=== PATIENT | male | born 1965 | race Caucasian/White ===

== ENCOUNTER 2018-01-30 14:53 | Inpatient (IN) | payer SELFPAY ==
[2018-01-30] MEDS ORDERED: ASPIRIN 81 MG TABLET, CHEWABLE PO ONE (15:54)
--- NOTE | 2018-01-30 16:13 | ER Document Report ---
ED Medical Screen (RME) - General Chief Complaint: Chest Pain Stated Complaint: LEG/CHEST PAIN Time Seen by Provider: 01/30/18 15:42 Mode of Arrival: Wheelchair Information source: Patient Notes: 52 yr old male presents with complaints of chest pressure sensation , peripheral edema and left foot 1st digit toe concern I have greeted and performed a rapid initial assessment of this patient. A comprehensive ED assessment and evaluation of the patient, analysis of test results and completion of the medical decision making process will be conducted by additional ED providers. PHYSICAL EXAMINATION: GENERAL: Well-appearing, well-nourished and in mild acute distress. HEAD: Atraumatic, normocephalic. EYES: Pupils equal round extraocular movements intact, conjunctiva are normal. ENT: Nares patent NECK: Normal range of motion LUNGS: No respiratory distress Musculoskeletal: Normal range of motion NEUROLOGICAL: Normal speech, normal gait. PSYCH: Normal mood, normal affect. SKIN: left foot 1st digit skin excoriation TRAVEL OUTSIDE OF THE [place] IN LAST 30 DAYS: No - Related Data Allergies/Adverse Reactions: Honey Bee Venom Protein [From Honey Bee Venom Protein] Allergy (Verified 12:52) Past Medical History - Social History Chew tobacco use (# tins/day): No Frequency of alcohol use: Occasional Family history: CAD - Past Medical History Cardiac Medical History: Reports: Hx Atrial Fibrillation Pulmonary Medical History: Denies: Hx Tuberculosis Renal/ Medical History: Denies: Hx Peritoneal Dialysis Musculoskeltal Medical History: Reports Hx Arthritis Psychiatric Medical History: Denies: Hx Depression Past Surgical History: Reports: Hx Herniorrhaphy. Denies: Hx Pacemaker - Immunizations Hx Diphtheria, Pertussis, Tetanus Vaccination: Yes Physical Exam - Vital signs Vitals: Temp Pulse Resp BP Pulse Ox 97.9 F 94 18 159/89 H 100 01/30/18 15:07 01/30/18 15:07 01/30/18 15:07 01/30/18 15:07 01/30/18 15:07 Course - Vital Signs Vital signs: Temp Pulse Resp BP Pulse Ox 97.9 F 94 18 159/89 H 100 01/30/18 15:07 01/30/18 15:07 01/30/18 15:07 01/30/18 15:07 01/30/18 15:07
--- NOTE | 2018-01-30 17:05 | ER Document Report ---
ED General - General Chief Complaint: Chest Pain Stated Complaint: LEG/CHEST PAIN Time Seen by Provider: 01/30/18 15:42 Mode of Arrival: Wheelchair Information source: Patient Notes: Patient is a 52-year-old male with a past medical history of intermittent atrial fibrillation currently on no medications or presents today stating that he has had some intermittent chest discomfort, again an episode this morning. He states it is substernal, nonexertional, nonradiating. He denies any nausea, vomiting, or fevers. States mild shortness of breath. Family is also concerned for around 2 weeks the patient has had an ulcer to the base of his left great toe. Patient denies any trauma. He states pain only to his toe. He denies a history of gout. Patient states he has had a history of " borderline diabetes" but is currently on no medications. He currently has no primary care physician. Patient states he does feel "weak all over". He denies any focal weakness or numbness. He denies any headache or neck pain. TRAVEL OUTSIDE OF THE [place] IN LAST 30 DAYS: No - HPI Onset: Other - See above Onset/Duration: Gradual Quality of pain: Achy Severity: Mild Pain Level: Denies Associated symptoms: Other - See above Exacerbated by: Denies Relieved by: Denies Similar symptoms previously: Yes Recently seen / treated by doctor: No - Related Data Allergies/Adverse Reactions: Honey Bee Venom Protein [From Honey Bee Venom Protein] Allergy (Verified 12:52) Past Medical History - General Information source: Patient - Social History Smoking Status: Never Smoker Cigarette use (# per day): No Chew tobacco use (# tins/day): No Smoking Education Provided: No Frequency of alcohol use: Occasional Family History: Reviewed & Not Pertinent Patient has suicidal ideation: No Patient has homicidal ideation: No - Past Medical History Cardiac Medical History: Reports: Hx Atrial Fibrillation Pulmonary Medical History: Denies: Hx Tuberculosis Renal/ Medical History: Denies: Hx Peritoneal Dialysis Musculoskeltal Medical History: Reports Hx Arthritis Psychiatric Medical History: Denies: Hx Depression Past Surgical History: Reports: Hx Herniorrhaphy. Denies: Hx Pacemaker - Immunizations Hx Diphtheria, Pertussis, Tetanus Vaccination: Yes Review of Systems - Review of Systems Constitutional: denies: Fever EENT: denies: Eye discharge, Nose discharge Cardiovascular: denies: Palpitations Respiratory: denies: Hurts to breathe, Hemoptysis Gastrointestinal: denies: Vomiting Genitourinary: denies: Dysuria Neurological/Psychological: Other - no slurred speech -: Yes All other systems reviewed and negative Physical Exam - Vital signs Vitals: Temp Pulse Resp BP Pulse Ox 97.9 F 94 18 159/89 H 100 01/30/18 15:07 01/30/18 15:07 01/30/18 15:07 01/30/18 15:07 01/30/18 15:07 Notes: Reviewed vital signs and nursing note as charted by RN. CONSTITUTIONAL: Alert and oriented and responds appropriately to questions. Well -appearing; well-nourished HEAD: Normocephalic; atraumatic EYES: PERRL; no nystagmus noted ENT: Normal nose; no rhinorrhea; moist mucous membranes; pharynx without lesions noted NECK: Supple without meningismus; non-tender; no cervical lymphadenopathy, no masses CARD: Regular rate and rhythm; no murmurs, no clicks, no rubs, no gallops; symmetric distal pulses RESP: Normal chest excursion without splinting or tachypnea; breath sounds clear and equal bilaterally; no wheezes, no rhonchi, no rales ABD/GI: Normal bowel sounds; non-distended; soft, non-tender BACK: The back appears normal and is non-tender to palpation EXT: Normal ROM in all joints; patient has a small circular ulcer around the size of a quarter to the base of his left great toe. Patient also has some swelling without tenderness to the left foot. Patient has strong pulses to bilateral feet. Intact sensation and proprioception SKIN: See above NEURO: Moves all extremities equally; Motor and sensory function intact PSYCH: The patient's mood and manner are appropriate. Grooming and personal hygiene are appropriate. Course - Re-evaluation Re-evalutation: 01/30/18 17:04 Given the history and physical examination we will order cardiac evaluation including an EKG and a cardiac panel as well as an x-ray of the left foot. I do believe pulmonary embolism and aortic dissection to be extremely unlikely. EKG shows a heart rate of 90, normal sinus rhythm, minimally prolonged QT interval, no obvious ST elevation or depression. Previous EKG in 2013 actually shows inverted T waves in leads V2 through V4 with an ST depression in lead V3 01/30/18 18:22 Initial troponin as recorded. X-ray of the chest and of the foot as recorded. I have provided a clindamycin dose and will admit the patient to the hospitalist service. - Vital Signs Vital signs: Temp Pulse Resp BP Pulse Ox 97.9 F 94 22 H 143/80 H 100 01/30/18 15:07 01/30/18 15:07 01/30/18 17:25 01/30/18 17:25 01/30/18 17:25 - Laboratory Result Diagrams: 01/30/18 17:30 01/30/18 17:30 Laboratory results interpreted by me: 01/30/18 01/30/18 17:30 17:30 RBC 4.31 L RDW 15.3 H Seg Neutrophils % 81.1 H Lymphocytes % 9.7 L BUN 3 L Discharge - Discharge Clinical Impression: Wound of left foot Chest pain Qualifiers: Chest pain type: unspecified Qualified Code(s): R07.9 - Chest pain, unspecified Condition: Fair Disposition: ADMITTED OBSERVATION Admitting Provider: Hospitalist Unit Admitted: Telemetry
[2018-01-30 17:41] LABS: ABSOLUTE LYMPHOCYTES (AUTO) 0.5 10^3/uL (0.5-4.7); ABSOLUTE MONOCYTES (AUTO) 0.3 10^3/uL (0.1-1.4); ABSOLUTE NEUT (AUTO) 3.8 10^3/uL (1.7-8.2); BASOPHILS % (AUTO) 1.1 % (0-2); EOSINOPHILS % (AUTO) 0.7 % (0-6); HEMOGLOBIN 14.3 g/dL (13.5-17.0); LYMPHOCYTES % (AUTO) 9.7 % (13-45); MEAN CORPUSCULAR HEMOGLOBIN 33.1 pg (27.0-33.4); MEAN CORPUSCULAR HGB CONC 34.7 g/dL (32.0-36.0); MEAN CORPUSCULAR VOLUME 95 fl (80-97); MONOCYTES % (AUTO) 7.4 % (3-13); PLATELET COUNT 186 10^3/uL (150-450); RED BLOOD COUNT 4.31 10^6/uL (4.35-5.55); RED CELL DISTRIBUTION WIDTH 15.3 % (11.5-14.0); SEGMENTED NEUTROPHILS % (AUTO) 81.1 % (42-78); TOTAL CELLS COUNTED % (AUTO) 100 %; WHITE BLOOD COUNT 4.6 10^3/uL (4.0-10.5)
--- NOTE | 2018-01-30 18:02 | RADIOLOGY REPORT (SQ) ---
EXAM DESCRIPTION: FOOT LEFT COMPLETE COMPLETED DATE/TIME: 01/30/2018 5:23 pm REASON FOR STUDY: 14; ulce to the base of the left great toe with so COMPARISON: None. NUMBER OF VIEWS: Three views left foot LIMITATIONS: None. FINDINGS: There is no acute or significant bone, joint or soft tissue abnormality. OTHER: No other significant finding. IMPRESSION: NORMAL STUDY. TECHNICAL DOCUMENTATION: JOB ID: [id number] Reading location - IP/workstation name: [email or web address]
--- NOTE | 2018-01-30 18:03 | RADIOLOGY REPORT (SQ) ---
EXAM DESCRIPTION: CHEST 2 VIEWS COMPLETED DATE/TIME: 01/30/2018 5:23 pm REASON FOR STUDY: peripheral edema COMPARISON: 2013 TECHNIQUE: Frontal and lateral radiographic views of the chest acquired. NUMBER OF VIEWS: Two view. LIMITATIONS: None. FINDINGS: LUNGS AND PLEURA: No opacities, masses or pneumothorax. No pleural effusion. MEDIASTINUM AND HILAR STRUCTURES: No masses or contour abnormalities. HEART AND VASCULAR STRUCTURES: Heart normal size. No evidence for failure. BONES: No acute findings. HARDWARE: None in the chest. OTHER: No other significant finding. IMPRESSION: NO SIGNIFICANT RADIOGRAPHIC FINDING IN THE CHEST. TECHNICAL DOCUMENTATION: JOB ID: [id number] [employer]- All Rights Reserved Reading location - IP/workstation name: [email or web address]
[2018-01-30 18:05] LABS: ALANINE AMINOTRANSFERASE 26 U/L (21-72); ALBUMIN 3.7 g/dL (3.5-5.0); ALKALINE PHOSPHATASE 113 U/L (38-126); ANION GAP 14 (5-19); ASPARTATE AMINO TRANSFERASE 40 U/L (17-59); BILIRUBIN,DIRECT 0.4 mg/dL (0.0-0.4); BLOOD UREA NITROGEN 3 mg/dL (7-20); CALCIUM 8.8 mg/dL (8.4-10.2); CARBON DIOXIDE 25 mmol/L (22-30); CHLORIDE 102 mmol/L (98-107); CREATINE KINASE 59 U/L (55-170); GLUCOSE 105 mg/dL (75-110); POTASSIUM 4.3 mmol/L (3.6-5.0); SODIUM 140.6 mmol/L (137-145); TOTAL PROTEIN 7.7 g/dL (6.3-8.2)
[2018-01-30 18:15] LABS: CREATINE KINASE MB 0.69 ng/mL (<4.55); NT PRO BNP 447 pg/mL (5-900)
[2018-01-30 18:16] LABS: TROPONIN I < 0.012 ng/mL
[2018-01-30] MEDS ORDERED: CLINDAMYCIN 600 MG/D5W RTU 600 MG/50 ML RTUPB IV ONE (18:29)
[2018-01-30] MEDS ORDERED: DEXTROSE 40% GEL 15 GM TUBE PO PRN ×2 (19:15)
[2018-01-30] MEDS ORDERED: DEXTROSE 50%-WATER 25 GM/50 ML DISP.SYRIN IV PRN ×2 (19:15)
[2018-01-30] MEDS ORDERED: GLUCAGON,HUMAN RECOMB 1 MG INJ SUBCUT PRN (19:15)
[2018-01-30] MEDS: KETOROLAC TROMETHAMINE INJ/PF 30 MG/1 ML SDV IV PRN (20:40)
[2018-01-30] MEDS: HEPARIN SOD (PORCINE) 5,000 UNIT/ML 1 ML SYRINGE SUBCUT SCH (20:40)
[2018-01-30] MEDS: ATORVASTATIN CALCIUM 80 MG TABLET PO SCH (20:40)
--- NOTE | 2018-01-30 21:16 | EKG REPORT ---
SEVERITY:- ABNORMAL ECG - SINUS RHYTHM PROLONGED QT INTERVAL : Confirmed by: Christiano Sena 30-Jan-2018 21:16:04
[2018-01-30] MEDS: CLINDAMYCIN HCL 150 MG CAPSULE PO SCH (23:22)
[2018-01-31 00:26] LABS: CREATINE KINASE MB 0.47 ng/mL (<4.55)
[2018-01-31 00:47] LABS: TROPONIN I < 0.012 ng/mL
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
[2018-01-31] MEDS: HEPARIN SOD (PORCINE) 5,000 UNIT/ML 1 ML SYRINGE SUBCUT SCH ×3 (06:03→21:38)
[2018-01-31] MEDS: CLINDAMYCIN HCL 150 MG CAPSULE PO SCH ×2 (06:03→16:16)
[2018-01-31 06:48] LABS: CHOLESTEROL 160.85 mg/dL (0-200); CREATINE KINASE 42 U/L (55-170); TRIGLYCERIDES 58 mg/dL (<150)
[2018-01-31 07:00] LABS: DIRECT LDL 54 mg/dL (<100)
[2018-01-31 07:01] LABS: CREATINE KINASE MB 0.53 ng/mL (<4.55)
[2018-01-31 07:03] LABS: TROPONIN I < 0.012 ng/mL
[2018-01-31] MEDS: CYANOCOBALAMIN (VITAMIN B-12) INJ 1000 MCG/1 ML VIAL IM SCH (10:32)
[2018-01-31] MEDS: DOCUSATE SODIUM 100 MG CAPSULE PO SCH ×2 (10:35→17:55)
[2018-01-31] MEDS ORDERED: REGADENOSON INJ 0.4 MG/5 ML DISP.SYRIN IV ONE (11:30)
[2018-01-31 12:19] LABS: CREATINE KINASE MB 0.56 ng/mL (<4.55)
[2018-01-31 12:23] LABS: TROPONIN I < 0.012 ng/mL
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
--- NOTE | 2018-01-31 17:40 | Progress Note ---
Provider Note Provider Note: DEREK SAVAGE is a 52 year old male with a past medical history of paroxysmal atrial fibrillation and recurrent syncopal episodes without trauma. Patient initially presented with a chief complaint of chest pain. An incidental finding was bilateral great toe ulcers, left significantly worse than right. Erythema and swelling to left foot and ankle with red streaking up LLE 1. CHEST PAIN: EKG shows NSR. Troponin < 0.012. No longer trending. Patient does not complain of chest pain. 2. L TOE ULCER: Initially started on clindamycin by press maintainer, upgraded to vancomycin and Zosyn given severity of presenting symptoms. Surgery consulted, Dr. Botello concerned about condition of left great toe and foot. No plan for MRI at this time. Will follow closely. If no improvement, will require surgical intervention.
[2018-01-31] MEDS ORDERED: VANCOMYCIN HCL 0 MG in DEXTROSE 5%-WATER 250 ML IV NR (17:45)
[2018-01-31] MEDS: PIPERACILLIN SODIUM/TAZOBACTAM 3.375 GM in NORMAL SALINE 100 ML IV SCH (20:44)
[2018-01-31] MEDS: VANCOMYCIN HCL 1,500 MG in DEXTROSE 5%-WATER 250 ML IV SCH (21:38)
[2018-01-31] MEDS: ATORVASTATIN CALCIUM 80 MG TABLET PO SCH (21:38)
[2018-02-01] MEDS: PIPERACILLIN SODIUM/TAZOBACTAM 3.375 GM in NORMAL SALINE 100 ML IV SCH ×4 (02:35→20:19)
[2018-02-01 05:12] LABS: HEMATOCRIT 39.7 % (37.9-51.0); HEMOGLOBIN 13.7 g/dL (13.5-17.0); MEAN CORPUSCULAR HEMOGLOBIN 32.7 pg (27.0-33.4); MEAN CORPUSCULAR HGB CONC 34.4 g/dL (32.0-36.0); MEAN CORPUSCULAR VOLUME 95 fl (80-97); PLATELET COUNT 137 10^3/uL (150-450); RED BLOOD COUNT 4.18 10^6/uL (4.35-5.55); RED CELL DISTRIBUTION WIDTH 15.4 % (11.5-14.0); WHITE BLOOD COUNT 4.3 10^3/uL (4.0-10.5)
[2018-02-01 05:38] LABS: ALANINE AMINOTRANSFERASE 21 U/L (21-72); ALBUMIN 2.9 g/dL (3.5-5.0); ALKALINE PHOSPHATASE 80 U/L (38-126); ANION GAP 9 (5-19); ASPARTATE AMINO TRANSFERASE 36 U/L (17-59); BILIRUBIN,DIRECT 0.5 mg/dL (0.0-0.4); BILIRUBIN,TOTAL 1.7 mg/dL (0.2-1.3); BLOOD UREA NITROGEN 5 mg/dL (7-20); CALCIUM 8.3 mg/dL (8.4-10.2); CARBON DIOXIDE 26 mmol/L (22-30); CHLORIDE 102 mmol/L (98-107); GLUCOSE 102 mg/dL (75-110); POTASSIUM 3.8 mmol/L (3.6-5.0); TOTAL PROTEIN 6.4 g/dL (6.3-8.2)
[2018-02-01] MEDS: VANCOMYCIN HCL 1,500 MG in DEXTROSE 5%-WATER 250 ML IV SCH ×3 (05:49→21:59)
[2018-02-01] MEDS: HEPARIN SOD (PORCINE) 5,000 UNIT/ML 1 ML SYRINGE SUBCUT SCH ×3 (05:49→21:58)
[2018-02-01] MEDS: DOCUSATE SODIUM 100 MG CAPSULE PO SCH ×2 (09:02→17:32)
[2018-02-01] MEDS: CYANOCOBALAMIN (VITAMIN B-12) INJ 1000 MCG/1 ML VIAL IM SCH (09:10)
--- NOTE | 2018-02-01 15:31 | PDOC PROGRESS REPORT ---
Subjective Progress Note for:: 02/01/18 Subjective:: Less tingling sensation to both feet. Good sensory function to both feet. Reason For Visit: CHEST PAIN Physical Exam Vital Signs: Temp Pulse Resp BP Pulse Ox 97.6 F 62 18 128/74 H 100 02/01/18 11:56 02/01/18 11:56 02/01/18 11:56 02/01/18 11:56 02/01/18 13:35 Intake & Output 01/31/18 02/01/18 02/02/18 06:59 06:59 06:59 Intake Total 751 Balance 751 Weight 102.9 kg 98.3 kg Exam: Swelling left foot much improved according to the patient. Ulcer on big toe plantar side looks clean and roughly measures 3 cm x 2.5 cm with full thickness skin ulceration. He claims he does not have ggod control of left foot that at times it appears to scrape his left big toe.Claims has "neuropathy" of both feet. Has palpable ankle pulses Results Laboratory Results: 02/01/18 04:43 02/01/18 04:43 02/01/18 02/01/18 04:43 04:43 WBC 4.3 RBC 4.18 L Hgb 13.7 Hct 39.7 MCV 95 MCH 32.7 MCHC 34.4 RDW 15.4 H Plt Count 137 L Sodium 137.0 Potassium 3.8 Chloride 102 Carbon Dioxide 26 Anion Gap 9 BUN 5 L Creatinine 0.89 Est GFR ( Amer) > 60 Est GFR (Non-Af Amer) > 60 Glucose 102 Calcium 8.3 L Total Bilirubin 1.7 H AST 36 ALT 21 Alkaline Phosphatase 80 Total Protein 6.4 Albumin 2.9 L 01/30/18 01/31/18 01/31/18 23:45 05:44 05:44 Creatine Kinase 42 L CK-MB (CK-2) 0.47 0.53 Troponin I < 0.012 < 0.012 01/31/18 11:40 Creatine Kinase CK-MB (CK-2) 0.56 Troponin I < 0.012 Impressions: Chest X-Ray 01/30/18 15:54 IMPRESSION: NO SIGNIFICANT RADIOGRAPHIC FINDING IN THE CHEST. Foot X-Ray 01/30/18 16:59 IMPRESSION: NORMAL STUDY. Assessment & Plan - Time Time Spent with patient: 15-24 minutes - Plan Summary Plan Summary: Continue antibiotics and local wound care to left big toe ulcer site as outlined by Dr Botello
--- NOTE | 2018-02-01 17:20 | PDOC PROGRESS REPORT ---
Subjective Progress Note for:: 02/01/18 Subjective:: DEREK SAVAGE is a 52 year old male with a past medical history of paroxysmal atrial fibrillation and recurrent syncopal episodes without trauma. Patient initially presented with a chief complaint of chest pain. An incidental finding was bilateral great toe ulcers, left significantly worse than right. Erythema and swelling to left foot and ankle with red streaking up LLE. The patient was seen this morning on rounds. Today, the erythema and edema of the LLE has significantly improved. The patient states he is no longer experiencing pain to his L foot. Ulcer to plantar surface of the L great toe is pink, moist, with minimal drainage. Plan to continue IV antibiotics. Reason For Visit: CHEST PAIN Physical Exam Vital Signs: Temp Pulse Resp BP Pulse Ox 97.9 F 65 18 141/81 H 97 02/01/18 15:42 02/01/18 15:42 02/01/18 15:42 02/01/18 15:42 02/01/18 15:42 Intake & Output 01/31/18 02/01/18 02/02/18 06:59 06:59 06:59 Intake Total 751 Balance 751 Weight 102.9 kg 98.3 kg General appearance: PRESENT: no acute distress, well-developed, well-nourished Head exam: PRESENT: atraumatic, normocephalic Eye exam: PRESENT: conjunctiva pink, EOMI, PERRLA. ABSENT: scleral icterus Ear exam: PRESENT: normal external ear exam Mouth exam: PRESENT: moist, tongue midline Neck exam: ABSENT: carotid bruit, JVD, lymphadenopathy, thyromegaly Respiratory exam: PRESENT: clear to auscultation yobany. ABSENT: rales, rhonchi, wheezes Cardiovascular exam: PRESENT: RRR. ABSENT: diastolic murmur, rubs, systolic murmur Pulses: PRESENT: normal dorsalis pedis pul Vascular exam: PRESENT: normal capillary refill GI/Abdominal exam: PRESENT: normal bowel sounds, soft. ABSENT: distended, guarding, mass, organolmegaly, rebound, tenderness Rectal exam: PRESENT: deferred Extremities exam: PRESENT: full ROM. ABSENT: calf tenderness, clubbing, pedal edema Neurological exam: PRESENT: alert, awake, oriented to person, oriented to place , oriented to time, oriented to situation Psychiatric exam: PRESENT: appropriate affect, normal mood Skin exam: PRESENT: dry, intact, warm, other - L GREAT TOE ULCER ON PLANTAR SURFACE. ABSENT: cyanosis, rash Results Laboratory Results: 02/01/18 04:43 02/01/18 04:43 02/01/18 02/01/18 04:43 04:43 WBC 4.3 RBC 4.18 L Hgb 13.7 Hct 39.7 MCV 95 MCH 32.7 MCHC 34.4 RDW 15.4 H Plt Count 137 L Sodium 137.0 Potassium 3.8 Chloride 102 Carbon Dioxide 26 Anion Gap 9 BUN 5 L Creatinine 0.89 Est GFR ( Amer) > 60 Est GFR (Non-Af Amer) > 60 Glucose 102 Calcium 8.3 L Total Bilirubin 1.7 H AST 36 ALT 21 Alkaline Phosphatase 80 Total Protein 6.4 Albumin 2.9 L 01/30/18 01/31/18 01/31/18 23:45 05:44 05:44 Creatine Kinase 42 L CK-MB (CK-2) 0.47 0.53 Troponin I < 0.012 < 0.012 01/31/18 11:40 Creatine Kinase CK-MB (CK-2) 0.56 Troponin I < 0.012 Impressions: Chest X-Ray 01/30/18 15:54 IMPRESSION: NO SIGNIFICANT RADIOGRAPHIC FINDING IN THE CHEST. Foot X-Ray 01/30/18 16:59 IMPRESSION: NORMAL STUDY. Status: Imported from PACS Assessment & Plan - Diagnosis (1) Ulcer of toe of left foot Is this a current diagnosis for this admission?: Yes Plan: Ulcer secondary to poor hygiene and overall immobility. Of note, there is a healed ulcer (of smaller size) on plantar surface of R great toe Preliminary results of wound cultures + for G+ cocci in clusters Continue vancomycin and Zosyn given severity of presenting symptoms. Surgery consulted, Dr. Botello concerned about condition of left great toe and foot. No need for MRI at this time. Will follow closely. If condition worsens, will require surgical intervention. (2) Chest pain Qualifiers: Chest pain type: unspecified Qualified Code(s): R07.9 - Chest pain, unspecified Is this a current diagnosis for this admission?: Yes Plan: Resolved. Cardiac workup complete - EKG normal. CXR normal. Serial troponin < 0.012, no longer trending. No plan for stress test or ECHO. Plan for outpatient follow up once discharged. - Time Time Spent with patient: 15-24 minutes Medications reviewed and adjusted accordingly: Yes Anticipated discharge: Home Within: within 48 hours - Inpatient Certification Based on my medical assessment, after consideration of the patient's comorbidities, presenting symptoms, or acuity I expect that the services needed warrant INPATIENT care.: Yes I certify that my determination is in accordance with my understanding of Medicare's requirements for reasonable and necessary INPATIENT services [42 CFR 412.3e].: Yes Medical Necessity: Need for IV Antibiotics - Plan Summary Plan Summary: CONTINUE IV ANTIBIOTICS. SURGERY CONTINUES TO FOLLOW, APPRECIATE THEIR RECOMMENDATIONS
[2018-02-01] MEDS: ATORVASTATIN CALCIUM 80 MG TABLET PO SCH (21:59)
[2018-02-01 22:14] LABS: VANCOMYCIN,TROUGH 22.6 ug/mL (5.0-20.0)
[2018-02-01] MEDS ORDERED: NORMAL SALINE 1000 ML 1,000 ML IV SCH (23:15)
[2018-02-02] MEDS: PIPERACILLIN SODIUM/TAZOBACTAM 3.375 GM in NORMAL SALINE 100 ML IV SCH ×3 (02:42→14:15)
[2018-02-02] MEDS: HEPARIN SOD (PORCINE) 5,000 UNIT/ML 1 ML SYRINGE SUBCUT SCH ×3 (05:57→21:57)
[2018-02-02 06:12] LABS: HEMATOCRIT 39.8 % (37.9-51.0); MEAN CORPUSCULAR HEMOGLOBIN 33.7 pg (27.0-33.4); MEAN CORPUSCULAR HGB CONC 35.1 g/dL (32.0-36.0); MEAN CORPUSCULAR VOLUME 96 fl (80-97); PLATELET COUNT 130 10^3/uL (150-450); RED BLOOD COUNT 4.14 10^6/uL (4.35-5.55); RED CELL DISTRIBUTION WIDTH 15.7 % (11.5-14.0)
[2018-02-02 06:31] LABS: ANION GAP 8 (5-19); BLOOD UREA NITROGEN 5 mg/dL (7-20); CALCIUM 7.9 mg/dL (8.4-10.2); CARBON DIOXIDE 23 mmol/L (22-30); CHLORIDE 107 mmol/L (98-107); GLUCOSE 172 mg/dL (75-110); PHOSPHORUS 3.7 mg/dL (2.5-4.5); POTASSIUM 3.6 mmol/L (3.6-5.0); SODIUM 138.3 mmol/L (137-145)
[2018-02-02] MEDS: DOCUSATE SODIUM 100 MG CAPSULE PO SCH ×2 (09:20→17:13)
[2018-02-02] MEDS: CYANOCOBALAMIN (VITAMIN B-12) INJ 1000 MCG/1 ML VIAL IM SCH (09:23)
[2018-02-02] MEDS ORDERED: VANCOMYCIN HCL 0 MG in DEXTROSE 5%-WATER 250 ML IV NR (11:00)
--- NOTE | 2018-02-02 13:56 | PDOC PROGRESS REPORT ---
Subjective Progress Note for:: 02/02/18 Subjective:: No more pains left big toe Reason For Visit: CHEST PAIN Physical Exam Vital Signs: Temp Pulse Resp BP Pulse Ox 97.6 F 57 L 16 146/81 H 100 02/02/18 11:02 02/02/18 11:02 02/02/18 11:02 02/02/18 11:02 02/02/18 11:02 Intake & Output 02/01/18 02/02/18 02/03/18 06:59 06:59 06:59 Intake Total 751 1273 Balance 751 1273 Weight 98.3 kg 98.9 kg Exam: Dressings to left big toe change earlier today by nurses. No edema on left foot Results Laboratory Results: 02/02/18 06:00 02/02/18 06:00 02/02/18 02/02/18 06:00 06:00 WBC 5.0 RBC 4.14 L Hgb 14.0 Hct 39.8 MCV 96 MCH 33.7 H MCHC 35.1 RDW 15.7 H Plt Count 130 L Sodium 138.3 Potassium 3.6 Chloride 107 Carbon Dioxide 23 Anion Gap 8 BUN 5 L Creatinine 0.96 Est GFR ( Amer) > 60 Est GFR (Non-Af Amer) > 60 Glucose 172 H Calcium 7.9 L Phosphorus 3.7 Magnesium 1.8 01/30/18 23:04 Toe - Left First Wound Culture - Final Staphylococcus Aureus Skin Tish 01/30/18 01/31/18 01/31/18 23:45 05:44 05:44 Creatine Kinase 42 L CK-MB (CK-2) 0.47 0.53 Troponin I < 0.012 < 0.012 01/31/18 11:40 Creatine Kinase CK-MB (CK-2) 0.56 Troponin I < 0.012 Impressions: Chest X-Ray 01/30/18 15:54 IMPRESSION: NO SIGNIFICANT RADIOGRAPHIC FINDING IN THE CHEST. Foot X-Ray 01/30/18 16:59 IMPRESSION: NORMAL STUDY. Assessment & Plan - Time Time Spent with patient: 15-24 minutes - Plan Summary Plan Summary: Continue with local wound care and IV antibiotics will follow as needed
--- NOTE | 2018-02-02 17:01 | PDOC PROGRESS REPORT ---
Subjective Progress Note for:: 02/02/18 Subjective:: DEREK SAVAGE is a 52 year old male with a past medical history of paroxysmal atrial fibrillation and recurrent syncopal episodes without trauma. Patient initially presented with a chief complaint of chest pain. An incidental finding was bilateral great toe ulcers, left significantly worse than right. Erythema and swelling to left foot and ankle with red streaking up LLE. The patient was seen this morning on rounds. Today, the erythema and edema of the LLE has significantly improved, trace edema at the ankle. The patient states he is no longer experiencing pain to his L foot. Ulcer to plantar surface of the L great toe is pink, moist, with minimal drainage. Plan to continue IV antibiotics and daily dressing changes. Reason For Visit: CHEST PAIN Physical Exam Vital Signs: Temp Pulse Resp BP Pulse Ox 97.6 F 59 L 16 140/72 H 99 02/02/18 15:20 02/02/18 15:20 02/02/18 15:20 02/02/18 15:20 02/02/18 15:20 Intake & Output 02/01/18 02/02/18 02/03/18 06:59 06:59 06:59 Intake Total 751 1273 570 Balance 751 1273 570 Weight 98.3 kg 98.9 kg General appearance: PRESENT: no acute distress, well-developed, well-nourished Head exam: PRESENT: atraumatic, normocephalic Eye exam: PRESENT: conjunctiva pink, EOMI, PERRLA. ABSENT: scleral icterus Ear exam: PRESENT: normal external ear exam Mouth exam: PRESENT: moist, tongue midline Neck exam: ABSENT: carotid bruit, JVD, lymphadenopathy, thyromegaly Respiratory exam: PRESENT: clear to auscultation yobany. ABSENT: rales, rhonchi, wheezes Cardiovascular exam: PRESENT: RRR. ABSENT: diastolic murmur, rubs, systolic murmur Pulses: PRESENT: normal dorsalis pedis pul Vascular exam: PRESENT: normal capillary refill GI/Abdominal exam: PRESENT: normal bowel sounds, soft. ABSENT: distended, guarding, mass, organolmegaly, rebound, tenderness Rectal exam: PRESENT: deferred Extremities exam: PRESENT: full ROM, pedal edema - mild L pedal edema. ABSENT: calf tenderness, clubbing Musculoskeletal exam: PRESENT: ambulatory, full ROM Neurological exam: PRESENT: alert, awake, oriented to person, oriented to place , oriented to time, oriented to situation Psychiatric exam: PRESENT: appropriate affect, normal mood Skin exam: PRESENT: erythema, warm, other - ULCER TO PLANTAR SURFACE OF L GREAT TOE. EDGES . MINIMAL SS DRAINAGE. SOFT TISSUE IS PINK AND MOIST. ABSENT: cyanosis, intact, rash Results Laboratory Results: 02/02/18 06:00 02/02/18 06:00 02/02/18 02/02/18 06:00 06:00 WBC 5.0 RBC 4.14 L Hgb 14.0 Hct 39.8 MCV 96 MCH 33.7 H MCHC 35.1 RDW 15.7 H Plt Count 130 L Sodium 138.3 Potassium 3.6 Chloride 107 Carbon Dioxide 23 Anion Gap 8 BUN 5 L Creatinine 0.96 Est GFR ( Amer) > 60 Est GFR (Non-Af Amer) > 60 Glucose 172 H Calcium 7.9 L Phosphorus 3.7 Magnesium 1.8 01/30/18 23:04 Toe - Left First Wound Culture - Final Staphylococcus Aureus Skin Tish 01/30/18 01/31/18 01/31/18 23:45 05:44 05:44 Creatine Kinase 42 L CK-MB (CK-2) 0.47 0.53 Troponin I < 0.012 < 0.012 01/31/18 11:40 Creatine Kinase CK-MB (CK-2) 0.56 Troponin I < 0.012 Impressions: Chest X-Ray 01/30/18 15:54 IMPRESSION: NO SIGNIFICANT RADIOGRAPHIC FINDING IN THE CHEST. Foot X-Ray 01/30/18 16:59 IMPRESSION: NORMAL STUDY. Status: Imported from PACS Assessment & Plan - Diagnosis (1) Ulcer of toe of left foot Is this a current diagnosis for this admission?: Yes Plan: Improving. Ulcer secondary to poor hygiene and overall immobility. Of note, there is a healed ulcer (of smaller size) on plantar surface of R great toe Wound cultures + for MSSA. Sensitivities are resulted, antibiotic coverage has been tailored. Discontinue vancomycin and Zosyn. Initiate Clindamycin IV Surgery consulted, Dr. Botello concerned about condition of left great toe and foot. No need for MRI at this time. Will follow closely. If condition worsens, will require surgical intervention. (2) Chest pain Qualifiers: Chest pain type: unspecified Qualified Code(s): R07.9 - Chest pain, unspecified Is this a current diagnosis for this admission?: Yes Plan: Resolved. Cardiac workup complete - EKG normal. CXR normal. Serial troponin < 0.012, no longer trending. No plan for stress test or ECHO. Plan for outpatient follow up once discharged. - Time Time Spent with patient: 15-24 minutes Medications reviewed and adjusted accordingly: Yes Anticipated discharge: Home Within: within 48 hours - Inpatient Certification Based on my medical assessment, after consideration of the patient's comorbidities, presenting symptoms, or acuity I expect that the services needed warrant INPATIENT care.: Yes I certify that my determination is in accordance with my understanding of Medicare's requirements for reasonable and necessary INPATIENT services [42 CFR 412.3e].: Yes Medical Necessity: Need for IV Antibiotics - Plan Summary Plan Summary: INITIATE CLINDAMYCIN TREATMENT. MONITOR FOR CONTINUED IMPROVEMENT ON NEW ANTIBIOTIC REGIMEN. PLAN TO D/C HOME IN 24-48 HOURS
[2018-02-02] MEDS: KETOROLAC TROMETHAMINE INJ/PF 30 MG/1 ML SDV IV PRN (21:57)
[2018-02-02] MEDS: ATORVASTATIN CALCIUM 80 MG TABLET PO SCH (21:57)
[2018-02-02] MEDS: CLINDAMYCIN 600 MG/D5W RTU 600 MG/50 ML RTUPB IV SCH (22:01)
[2018-02-02] MEDS ORDERED: FAMOTIDINE INJ/PF 20 MG/2 ML SDV IV ONE (23:45)
[2018-02-02] MEDS ORDERED: DIPHENHYDRAMINE HCL 50 MG/ML VIAL INJ ONE (23:45)
[2018-02-02] MEDS ORDERED: METHYLPREDNISOLONE INJ 125 MG/2 ML SDV IV ONE (23:45)
[2018-02-03] MEDS: CLINDAMYCIN 600 MG/D5W RTU 600 MG/50 ML RTUPB IV SCH (04:54)
[2018-02-03] MEDS: HEPARIN SOD (PORCINE) 5,000 UNIT/ML 1 ML SYRINGE SUBCUT SCH ×3 (05:44→21:36)
[2018-02-03] MEDS: DOCUSATE SODIUM 100 MG CAPSULE PO SCH ×2 (08:53→17:37)
[2018-02-03] MEDS: CYANOCOBALAMIN (VITAMIN B-12) INJ 1000 MCG/1 ML VIAL IM SCH (09:43)
[2018-02-03] MEDS: AMOXICILLIN TR/POT CLAVULANATE 500-125 MG TAB PO SCH ×2 (13:42→21:36)
--- NOTE | 2018-02-03 20:06 | PDOC PROGRESS REPORT ---
Subjective Progress Note for:: 02/03/18 Subjective:: DEREK SAVAGE is a 52 year old male with a past medical history of paroxysmal atrial fibrillation and recurrent syncopal episodes without trauma. Patient initially presented with a chief complaint of chest pain. An incidental finding was bilateral great toe ulcers, left significantly worse than right. Erythema and swelling to left foot and ankle with red streaking up LLE. The patient was seen this morning on rounds. Erythema and edema of the LLE continue to improve, trace edema at the ankle. Ulcer to plantar surface of the L great toe is pink, moist, with minimal drainage. Culture and sensitivities resulted yesterday, patient switched to Clindamycin from Vanc/Zosyn. Nursing staff reports that the patient endorsed throat tightness and 'feeling like my throat was closing' following 1st dose of iv Clindamycin. He was given pepcid and benadryl and his symptoms resolved. Plan to readjust antibiotics today. Reason For Visit: CELLULITIS OF LEFT FOOT Physical Exam Vital Signs: Temp Pulse Resp BP Pulse Ox 97.4 F 67 16 135/77 H 100 02/03/18 15:04 02/03/18 15:04 02/03/18 15:04 02/03/18 15:04 02/03/18 15:04 Intake & Output 02/02/18 02/03/18 02/04/18 06:59 06:59 06:59 Intake Total 750 330 Balance 750 330 Weight 100.3 kg General appearance: PRESENT: no acute distress Eye exam: PRESENT: conjunctiva pink, PERRLA Mouth exam: PRESENT: moist, tongue midline Teeth exam: PRESENT: poor dentation Neck exam: PRESENT: full ROM Respiratory exam: PRESENT: clear to auscultation yobany, symmetrical, unlabored Cardiovascular exam: PRESENT: +S1, +S2 Pulses: PRESENT: normal radial pulses, normal dorsalis pedis pul GI/Abdominal exam: PRESENT: normal bowel sounds, soft Rectal exam: PRESENT: deferred Extremities exam: PRESENT: full ROM Musculoskeletal exam: PRESENT: ambulatory, full ROM Neurological exam: PRESENT: alert, awake, oriented to person, oriented to place , oriented to time, oriented to situation Psychiatric exam: PRESENT: appropriate affect Skin exam: PRESENT: other - open ulcer on plantar surface of L great toe.. ABSENT: intact Results Impressions: Chest X-Ray 01/30/18 15:54 IMPRESSION: NO SIGNIFICANT RADIOGRAPHIC FINDING IN THE CHEST. Foot X-Ray 01/30/18 16:59 IMPRESSION: NORMAL STUDY. Status: Imported from PACS Assessment & Plan - Diagnosis (1) Ulcer of toe of left foot Is this a current diagnosis for this admission?: Yes Plan: Improving. Ulcer secondary to poor hygiene and overall immobility. Of note, there is a healed ulcer (of smaller size) on plantar surface of R great toe Wound cultures + for MSSA. Sensitivities are resulted, antibiotic coverage has been tailored. Discontinue Clindamycin IV secondary to possible allergic reaction Initiate PO augmentin Surgery has been consulted. Appreciate recommendations. (2) Chest pain Qualifiers: Chest pain type: unspecified Qualified Code(s): R07.9 - Chest pain, unspecified Is this a current diagnosis for this admission?: Yes Plan: Resolved. Cardiac workup complete - EKG normal. CXR normal. Serial troponin < 0.012, no longer trending. No plan for stress test or ECHO. Plan for outpatient follow up once discharged. - Time Time Spent with patient: 15-24 minutes Medications reviewed and adjusted accordingly: Yes Anticipated discharge: Home Within: within 48 hours - Inpatient Certification Based on my medical assessment, after consideration of the patient's comorbidities, presenting symptoms, or acuity I expect that the services needed warrant INPATIENT care.: Yes I certify that my determination is in accordance with my understanding of Medicare's requirements for reasonable and necessary INPATIENT services [42 CFR 412.3e].: Yes Medical Necessity: Risk of Complication if Not Cared For in Hospital - Plan Summary Plan Summary: Continue PO antibiotics. Likely discharge tomorrow.
[2018-02-03] MEDS: ATORVASTATIN CALCIUM 80 MG TABLET PO SCH (21:36)
[2018-02-04] MEDS: AMOXICILLIN TR/POT CLAVULANATE 500-125 MG TAB PO SCH (05:35)
[2018-02-04] MEDS: HEPARIN SOD (PORCINE) 5,000 UNIT/ML 1 ML SYRINGE SUBCUT SCH (05:36)
[2018-02-04 06:31] LABS: HEMATOCRIT 38.1 % (37.9-51.0); HEMOGLOBIN 13.2 g/dL (13.5-17.0); MEAN CORPUSCULAR HEMOGLOBIN 33.2 pg (27.0-33.4); MEAN CORPUSCULAR HGB CONC 34.6 g/dL (32.0-36.0); MEAN CORPUSCULAR VOLUME 96 fl (80-97); PLATELET COUNT 120 10^3/uL (150-450); RED BLOOD COUNT 3.98 10^6/uL (4.35-5.55); RED CELL DISTRIBUTION WIDTH 15.4 % (11.5-14.0); WHITE BLOOD COUNT 5.5 10^3/uL (4.0-10.5)
[2018-02-04] MEDS: DOCUSATE SODIUM 100 MG CAPSULE PO SCH (10:27)
[2018-02-04] MEDS: CYANOCOBALAMIN (VITAMIN B-12) INJ 1000 MCG/1 ML VIAL IM SCH (10:28)
[2018-02-04 13:56] VITALS: BP 144/83
--- NOTE | 2018-02-06 22:06 | DRAGON STRESS TEST REPORT ---
Intravenous Lexiscan Cardiolite stress test using single photon emmision computerized tomography. Date of procedure: 01/31/2018. Ordering Provider: . Patient's status: In Patient. Indication: Chest pain. Coronary risk factors: Age, diabetes mellitus, and dyslipidemia. Resting EKG: Sinus bradycardia T inversion in leads V1 and V2.? Normal variation Stress EKG: No changes of ischemia. The patient had no chest pain or discomfort, and there were no arrhythmias seen. Reason for termination: Protocol. Conclusions: Normal EKG and hemodynamic response to IV Lexiscan. Nuclear data: At rest the patient was given 14.53 millicuries of technetium 99m sestamibi injected intravenously. As per protocol rest non gated SPECT images were obtained. Subsequently the patient was given intravenous Lexiscan at a dose of 0.4 mg in 5 mL intravenously, followed by flush with normal saline. Subsequently the stress dose of 43.0 millicuries of technetium 99m sestamibi was injected intravenously. As per protocol stress gated images were obtained. Nuclear interpretation: Review of images showed there was liver and bowel contamination artifact of the inferior wall, and also motion artifact. This is a very poor quality study. In spite of this all segments of the myocardium had normal perfusion at rest, and normal perfusion post stress with IV Lexiscan. All segments of the myocardium had normal motion, contraction, and thickening by gated study. T. I D. ratio was normal at 1.02. Computer read rest, and stress left ventricular ejection fraction were 56 %, and 42 %, respectively. Visually both the stress and rest ejection fractions were normal, and greater than 55%. Conclusion: 1. There is no scintigraphic evidence of Lexiscan induced myocardial ischemia. 2. There is no scintigraphic evidence of myocardial infarction/scar. Recommendations: Aggressive risk factor modification, and treating the underlying co- morbidities. Cardiac Catheterization if patient continues to have chest pain. [facility]
== END 2018-02-04 13:50 | disposition home or self-care (01) | DRG 603 ==
LOC: ER 14:53 → EH 18:36 → 4N 19:45 → OBSVTOIN 02-02 08:00
PROVIDERS: ADMIT Internal Medicine; ATTEND Internal Medicine
DX: L03.115 Cellulitis of right lower limb (principal); K21.9 Gastro-esophageal reflux disease without esophagitis; M19.90 Unspecified osteoarthritis, unspecified site; L03.032 Cellulitis of left toe; I48.0 Paroxysmal atrial fibrillation; L97.529 Non-pressure chronic ulcer of other part of left foot with unspecified severity; L97.519 Non-pressure chronic ulcer of other part of right foot with unspecified severity; B95.61 Methicillin susceptible Staphylococcus aureus infection as the cause of diseases classified elsewhere; I25.10 Atherosclerotic heart disease of native coronary artery without angina pectoris; Z60.2 Problems related to living alone; Z87.891 Personal history of nicotine dependence; Z91.030 Bee allergy status; Z91.013 Allergy to seafood; Z83.6 Family history of other diseases of the respiratory system
CPT/HCPCS: 36415; 71046; 78452; 80048; 80053; 80061; 80202; 82550; 82553; 82607; 83036; 83735; 83880; 84100; 84443; 84484; 85025; 85027; 87070; 87075; 87077; 87186; 87205; 93005; 93010; 93017; 96365; 99285; A9500; G0378; J1200; J1644; J1885; J2543; J2785; J2930; J3370; J3420; J3490; J7030; J7060; S0028